=== PATIENT | female | born 1980 | race Two or more races ===

== ENCOUNTER 2024-07-24 09:57 | Emergency (ER) | payer OTHER ==
[~2024-07-24] VITALS: Ht 170.2 cm; Wt 90.7 kg
[2024-07-24] MEDS ORDERED: 0.9 % SODIUM CHLORIDE 1,000 ML IV ONE (10:30)
[2024-07-24] MEDS ORDERED: KETOROLAC TROMETHAMINE 15 MG VIAL IV ONE (10:30)
[2024-07-24 12:00] LABS: PH,URINE 7.5 (5.0-8.0); URINE APPEARANCE Clear; URINE BILIRRUBIN Negative (NEGATIVE); URINE BLOOD Small; URINE COLOR Yellow; URINE GLUCOSE Negative (NEGATIVE); URINE KETONE Negative (NEGATIVE); URINE LEUKOCYTE Negative; URINE NITRATE Negative; URINE PROTEIN Negative (NEGATIVE); URINE UROBILINOGEN 0.2 E.U./dl
[2024-07-24 12:03] LABS: URINE BACTERIA 52.8 uL (0.0-1933); URINE EPITHELIAL CELLS 10.4 uL (0.0-38.8); URINE WBC 4.4 uL (0.0-23.2)
[2024-07-24 12:04] LABS: URINE RBC 1.8 uL (0.0-20.8)
[2024-07-24 12:12] LABS: HEMATOCRIT 37.6 % (36.0-45.00); HEMOGLOBIN 12.7 g/dL (12.0-15.00); MEAN CELL VOLUME 86.5 fL (80.00-100.00); MEAN CORPUSCULAR HEMOGLOBIN 29.3 pg (27.00-32.0); MEAN CORPUSCULAR HGB CONC 33.8 g/dl (32.0-36.0); PLATELET COUNT 357 K/uL (150-450); RED BLOOD COUNT 4.34 M/uL (4.00-6.00); RED CELL DISTRIBUTION WIDTH 13.5 % (11.5-14.5)
[2024-07-24 12:20] LABS: INR 1.09; PARTIAL THROMBOPLASTIN TIME 28.1 SECONDS (22.0-34.0); PROTHROMBIN TIME 11.8 SECONDS (9.0-11.5)
[2024-07-24 12:24] LABS: ALBUMIN 3.5 gm/dL (3.4-5.0); BILIRUBIN TOTAL 0.41 mg/dL (0.3-1.2); CREATININE SERUM 0.75 mg/dL (0.55-1.02); GFR 83.95; GLOBULINA 4.3 G/DL (2.4-3.5); POTASSIUM 4.3 mEq/L (3.5-5.1); TOTAL PROTEIN 7.8 gm/dL (6.4-8.2)
== END 2024-07-24 15:31 | disposition home or self-care (01) ==
LOC: ER 09:58
PROVIDERS: General Practice
DX: R10.84 Generalized abdominal pain (principal)

== ENCOUNTER 2024-12-21 12:04 | Emergency (ER) | payer OTHER ==
[~2024-12-21] VITALS: Ht 162.6 cm; Wt 71.2 kg
[2024-12-21] MEDS ORDERED: SYNTHROID75 MCG PO (12:33)
[2024-12-21] MEDS ORDERED: LOSARTAN POTASS50 MG PO (12:34)
[2024-12-21] MEDS ORDERED: SYMBICORT 16010.2 GM NASAL (12:35)
[2024-12-21] MEDS ORDERED: ZYRTEC10 M3 PO (12:35)
== END 2024-12-21 15:24 | disposition home or self-care (01) ==
LOC: ER 12:07
DX: M94.0 Chondrocostal junction syndrome [Tietze] (principal); I10 Essential (primary) hypertension; E03.8 Other specified hypothyroidism; Z88.8 Allergy status to other drugs, medicaments and biological substances